=== PATIENT | male | born 1995 | race Caucasian/White ===

== ENCOUNTER 2021-06-26 11:53 | Emergency (ER) | payer OTHER, SELFPAY ==
[2021-06-26] VITALS (10 sets, daily range): BP systolic 116–141; BP diastolic 74–85; PULSE 55–92; RESP 16–20; TEMP 36.2–37.2; O2SAT 96–100; BMI 24.0
--- NOTE | ~2021-06-26 | FL_ITS ---
EXAMINATION: XR FLUOROSCOPY WITH IMAGES CLINICAL INFORMATION: Urinary tract calculi with left hydronephrosis. COMPARISON: CT abdomen and pelvis noncontrast 06/26/2021. TECHNIQUE: Fluoroscopy performed by Dr. Shahram Mcrae. Fluoroscopy time: 1.9 minutes Total dose: 24 mGy Images: 5 FINDINGS: There is some contrast in the mid left ureter. Final images show left ureteral stent in position. FL/FL guidance in OR IMPRESSION: Fluoroscopy for urologic procedure.
--- NOTE | ~2021-06-26 | CT_ITS ---
EXAMINATION: CT ABDOMEN AND PELVIS WITHOUT CONTRAST CLINICAL INFORMATION: Left flank pain, vomiting COMPARISON: None TECHNIQUE: Multidetector volumetric imaging was performed from the superior aspect of the liver through the pubic symphysis. No oral or intravenous contrast. Sagittal and coronal reformatted images were obtained on the technologist's workstation. This CT examination was performed using dose optimization techniques as appropriate, variously including the following: *Automated exposure control *Adjustment of mA and/or kV according to patient size (this includes techniques or standardized protocols for targeted exams where dose is matched to indication/reason for exam; i.e. extremities or head) *Use of iterative reconstruction technique DLP: 376 mGy-cm FINDINGS: LUNG BASES: The visualized lung bases are unremarkable. LIVER, GALLBLADDER, AND BILIARY TREE: The liver is normal in size, shape, and attenuation. No focal hepatic lesion or biliary ductal dilatation is present. The gallbladder is unremarkable with no evidence of radiopaque gallstones, gallbladder wall thickening, or obvious pericholecystic inflammatory changes. PANCREAS: Unremarkable. SPLEEN: Unremarkable. ADRENAL GLANDS: Unremarkable. KIDNEYS AND URETERS: Left hydronephrosis of moderate to prominent severity is present without perinephric stranding. The left kidney shows normal parenchymal thickness. No mass. There is mild left renal parenchymal edema with parenchymal attenuation 28 HU compared with the contralateral right kidney attenuation of 38HU. Nonobstructing left lower pole calculus measures 6 x 9 mm, 403 HU attenuation, and 7 cm from flank. There are a few punctate nonobstructing calculi lower pole under 3 mm. The proximal left ureter has 2 adjacent calculi at level L3-L4, each under 4 mm. Larger left ureteral calculus versus grouping calculi at level of L4 measures 5 x 8 mm, 820 HU attenuation, and 10 cm from flank. No other left ureteral calculi. Right kidney is normal in size and parenchymal thickness. No mass. No hydronephrosis or hydroureter or perinephric stranding. There are 3 small nonobstructing right renal calculi under 4 mm. No right ureteral calculi. BLADDER: Unremarkable. GASTROINTESTINAL TRACT: No bowel obstruction or focal inflammatory changes. There is increased attenuation in the appendiceal lumen along with a focal appendicolith approximately 3 x 5 mm in size. No appendiceal wall thickening or periappendiceal inflammatory changes. No ascites or fluid collection. There is moderate stool in the rectosigmoid. ABDOMINAL WALL: No significant hernia is appreciated. LYMPH NODES: No lymphadenopathy. VASCULAR: Probable retroaortic left renal vein. PELVIC VISCERA: Unremarkable. OSSEOUS STRUCTURES: Unremarkable. CT/CT abdomen pelvis wo con IMPRESSION: 1. Prominent left hydronephrosis secondary to several left ureteral calculi. Nonobstructing calculi lower pole left kidney. No perinephric stranding. 2. Nonobstructing calculi right kidney. 3. Calcified appendicoliths and some increased attenuation and otherwise unremarkable appendiceal lumen. No appendiceal wall thickening or periappendiceal inflammatory changes. No obstruction, ascites, or fluid collection.
[2021-06-26] MEDS: 0.9 % Sodium Chloride 1,000 ML 999 ML IVCONT ×2 (12:53→15:06)
[2021-06-26 12:56] LABS: MANUAL DIFF FLAG NO
[2021-06-26 12:58] LABS: Hematocrit 42.9 % (42.0-52.0); Imm Gran Abs Auto 0.01 X10*3/uL (0.00-0.03); Imm Gran Pct Auto 0.2 % (0.0-0.4); Lymphocytes Absolute Auto 0.8 X10*3/uL (1.2-4.9); Lymphocytes Percent Auto 13.3 % (20-40); Mean Corpuscular Hemoglobin 30.9 pg (27.0-33.0); Mean Corpuscular Volume 88.3 fL (80.0-98.0); Mean Platelet Volume 10.1 fL (9.4-12.4); Monocytes Absolute Auto 0.3 X10*3/uL (0.1-1.2); Monocytes Percent Auto 4.8 % (2-11); Neutrophils Absolute Auto 4.7 x10*3/uL (2.0-8.3); Neutrophils Percent Auto 81.7 % (45-73); Platelet Count 208 X10*3/uL (160-400); Red Blood Count 4.86 X10*6/uL (4.60-5.80); Red Cell Distribution Width 12.1 % (11.0-16.0); White Blood Count 5.8 X10*3/uL (4.8-10.8)
--- NOTE | 2021-06-26 12:59 | ED_ITS ---
HPI - Abdominal Pain General Chief Complaint: Urogenital-Female Stated Complaint: recurring kidney pain vomiting Time Seen by Provider: 06/26/21 12:39 Source: patient Mode of arrival: ambulatory Limitations: no limitations History of Present Illness HPI narrative: 25-year-old male with a history of known kidney stones presents to the ER with left-sided flank pain and vomiting that started this morning. Symptoms are worsening. He reports the pain is similar to his previous kidney stone episodes. He reports 3 times he has required urologic intervention for his stones; he does not recall the name of his Urologist but used to go to [facility]. He denies any fever or chills, no abdominal pain and no blood in his urine. He reports the pain is severe located in his left middle back. It is worse with any movement. He vomited several times today. He is not vaccinated for COVID- 19. MD elicited complaint: flank pain Pertinent past history: kidney stones Onset (ago): hour(s) Pain Consistency: constant Location: L flank Severity: similar to previous episodes Quality: sharp Radiation: none Migration to: no migration Exacerbating factors: movement Relieving factors: other (Remaining still) Context: history of similar episodes Associated symptoms: nausea and vomiting Related Data Allergies Allergy/AdvReac Type Severity Reaction Status Date / Time Unable to Assess Allergy Unverified 06/26/21 12:39 Review of Systems Review of Systems Constitutional: No Fever, No Chills ENT/Mouth: No sore throat, No Rhinorrhea, No Swallowing Difficulty Cardiovascular: No Chest Pain, No SOB, No Orthopnea, No Edema Respiratory: No Cough, No Sputum, No Wheezing, No dyspnea Gastrointestinal: + Nausea, + Vomiting, No Diarrhea, No abdominal Pain, No Hematochezia, No Melena, +flank pain Genitourinary: No Dysuria, No Urinary Frequency, No Hematuria Musculoskeletal: No joint pain, No Myalgias Skin: No Skin Lesions, No rash Neuro: No Weakness, No Numbness, No Dizziness, No Headache Heme/Lymph: No Bruising, No Lymphadenopathy Endocrine: No Polyuria, No Polydipsia Physical Exam Vital Signs: Vital Signs: Last Vital Signs Temp 98 F 06/26/21 12:43 Pulse 55 06/26/21 12:43 Resp 19 06/26/21 12:43 BP 141/85 H 06/26/21 12:43 Pulse Ox 99 06/26/21 12:43 BMI result Body Mass Index 24.0 Appearance: Alert. Oriented X3. Appears pale and uncomfortable. Eyes: Pupils equal, round and reactive to light. ENT: Pharynx normal. Neck: Normal inspection. Neck supple. CVS: Normal heart rate and rhythm. Pulses normal. Respiratory: No respiratory distress. Breath sounds normal. Abdomen: Soft and nontender. +BS x4. Positive CVA tenderness on the left. Skin: Skin warm and dry. Normal skin color. Normal skin turgor. No rashes. Extremities: No lower extremity edema. Neuro: Oriented X 3. No motor deficit. No sensory deficit. Course Course Course Narrative: 25-year-old male with history kidney stones presents to the ER with acute onset of left-sided flank pain, nausea, vomiting that started this morning. He was at work and had to leave because the symptoms got so severe. Concern for recurrent kidney stone. Will get labs, UA and CT scan for further evaluation. Will get COVID swab given vomiting. Reevaluation(s) Reevaluation #1: Patient's COVID swab is positive. He denies any fever, cough, chills, shortness of breath or chest pain. IV Toradol, Zofran and IV fluids are ordered. Will reassess. CT scan is pending. Reevaluation #2: CT scan is showing prominent left hydronephrosis with several left ureteral calculi. The proximal left ureter has 2 adjacent calculi at the level of L3-L4 each under 4 mm. There is a larger left uretreal calculus vs grouping calculi at the level of L4 5x8 mm. Will c/s Dr. mcrae. Pain still 8/10 after toradol, IV morphine ordered. Reevaluation #3: Pain is improved to 6/10. Spoke with Dr. Mcrae via tiger text to would like to take the patient to the OR today for intervention. He is aware of COVID positive status. Anticipate patient will be discharged after the proce dure. His COVID symptoms are minimal. Stable for discharge from the ED to the OR for acute urologic intervention. Consultations Consultation #1: Urology - Dr. Mcrae MDM - Abdominal Pain Lab Data Result diagrams: 06/26/21 12:51 06/26/21 12:51 Labs: Lab Results 06/26/21 06/26/21 06/26/21 Range/Units 12:51 12:51 12:57 WBC 5.8 (4.8-10.8) X10*3/uL RBC 4.86 (4.60-5.80) X10*6/uL Hgb 15.0 (14.0-18.0) g/dl Hct 42.9 (42.0-52.0) % MCV 88.3 (80.0-98.0) fL MCH 30.9 (27.0-33.0) pg MCHC 35.0 (31.0-36.0) g/dl RDW 12.1 (11.0-16.0) % Plt Count 208 (160-400) X10*3/uL MPV 10.1 (9.4-12.4) fL Immature Gran % (Auto) 0.2 (0.0-0.4) % Neut % (Auto) 81.7 H (45-73) % Lymph % (Auto) 13.3 L (20-40) % [place] % (Auto) 4.8 (2-11) % Eos % (Auto) 0.0 (0-4) % Baso % (Auto) 0.0 (0-2) % Lymph # (Auto) 0.8 L (1.2-4.9) X10*3/uL [place] # (Auto) 0.3 (0.1-1.2) X10*3/uL Eos # (Auto) 0.0 (0.0-0.4) X10*3/uL Baso # (Auto) 0.0 (0.0-0.2) X10*3/uL Abs Immat Gran (auto) 0.01 (0.00-0.03) X10*3/uL Absolute Neuts (auto) 4.7 (2.0-8.3) x10*3/uL Absolute Nucleated RBC 0.000 (0.0-0.012) X10*3/uL Nucleated RBC % (auto) 0.0 (0.0-0.2) /100WBC Sodium 139 (135-145) mmol/L Potassium 4.0 (3.3-5.1) mmol/L Chloride 102 (96-108) mmol/L Carbon Dioxide 27 (22-29) mmol/L Anion Gap 14 (12-20) BUN 10 (9-16) mg/dL Creatinine 0.90 (0.5-1.4) mg/dL Estim Creat Clear Calc 135.9 Estimated GFR > 60 Random Glucose 129 H (60-115) mg/dL Calcium 9.4 (8.4-10.2) mg/dL Magnesium 2.1 (1.6-2.6) mg/dL Total Bilirubin 1.3 H (0.0-1.0) mg/dL Direct Bilirubin 0.6 H (0.0-0.5) mg/dL AST 16 (5-37) U/L ALT 16 (0-40) U/L Alkaline Phosphatase 64 (39-117) U/L Total Protein 7.9 (6.5-8.0) g/dL Albumin 4.7 (3.5-5.0) g/dL COVID-19 (NARENDRA) Positive A (Negative) COVID-19 Clin Com See Note Critical Care Time Critical Care Time Critical Care Time: Yes Total Critical Care Time: 36 Attestation: I have personally provided critical care time exclusive of time spent on separately billable procedures. Time includes review of lab data, radiology results, discussion with consultants, and monitoring for potential decompensation. Intervention performed as documented. Discharge Plan Discharge Clinical Impression: COVID-19, Left ureteral calculus Hydronephrosis Qualifiers: Hydronephrosis type: with ureteral calculous obstruction Qualified Code(s): N13.2 - Hydronephrosis with renal and ureteral calculous obstruction Patient Disposition: Still a Patient Instructions: Covid-19 Viral Syndrome and Novel Coronavirus (ED) Hey/Ath, Ureteral Stones (ED) [facility] Past Medical History Medical History (Updated 06/26/21 @ 15:52 by LINA Colon) Kidney stones Social History Social History Advance Directives: No Advance Directives Information Provided: Yes
[2021-06-26 13:10] LABS: COVID-19 Test Positive (Negative)
[2021-06-26 13:13] LABS: Alanine Aminotransferase 16 U/L (0-40); Albumin Level 4.7 g/dL (3.5-5.0); Alkaline Phosphatase 64 U/L (39-117); Anion Gap 14 (12-20); Aspartate Amino Transferase 16 U/L (5-37); Bilirubin Direct 0.6 mg/dL (0.0-0.5); Bilirubin Total 1.3 mg/dL (0.0-1.0); Blood Urea Nitrogen 10 mg/dL (9-16); Calcium 9.4 mg/dL (8.4-10.2); Carbon Dioxide 27 mmol/L (22-29); Chloride 102 mmol/L (96-108); Creatinine Clr Calc Pharmacy 135.9; Estimated Glomerular Filt Rate > 60; Glucose Random 129 mg/dL (60-115); Magnesium 2.1 mg/dL (1.6-2.6); Sodium 139 mmol/L (135-145); Total Protein 7.9 g/dL (6.5-8.0)
[2021-06-26] MEDS: Ketorolac Tromethamine 30 MG/ML VIAL IVPUSH (13:24)
[2021-06-26] MEDS: ondansetron HCL 4 MG/2 ML VIAL IVPUSH (13:24)
[2021-06-26] MEDS: Tamsulosin HCL 0.4 MG CAPSULE PO (15:05)
[2021-06-26] MEDS: dexAMETHasone sod phosphate 4 MG/ML VIAL 8 MG IVPUSH (15:05)
[2021-06-26] MEDS: Morphine Sulfate 4 MG/ML CARTRIDGE IVPUSH ×2 (15:06→17:25)
--- NOTE | 2021-06-26 16:08 | PM.UROCN ---
History of Present Illness Consult details Consult date: 06/26/21 Narrative: Davy is a 25-year-old male Recurrent stone former Recently underwent procedures done at [facility] Presents with nausea and left-sided flank pain CT scan shows Steinstrasse in with collection of stones in mid ureter and collection of lower pole left side Based on CT findings unlikely to be able to pass stone Laboratory showed creatinine 0.9, calcium 9.4, WBC 5.8 Recommend ureteroscopy with laser lithotripsy and stent placement left side Patient has swabbed positive for COVID. Had runny nose for past 2 days with negative COVID tests. Review of Systems Constitutional: Constitutional: Reports as per HPI and Reports no additional constitutional complaints Cardiovascular: Cardiovascular: Reports as per HPI and Reports no additional cardiovascular complaints Respiratory: Respiratory: Reports as per HPI and Reports no additional respiratory complaints Gastrointestinal: Gastrointestinal: Reports as per HPI and Reports no additional gastrointestinal complaints Genitourinary: Genitourinary: Reports as per HPI Musculoskeletal: Musculoskeletal: Reports no additional musculoskeletal complaints and Reports as per HPI Neurologic: Reports system reviewed and no additional complaints, except as documented and Reports as per HPI [facility] Past Medical History Medical History (Updated 06/26/21 @ 16:11 by Shahram Mcrae MD) Kidney stones Social History Social History Advance Directives: No Advance Directives Information Provided: Yes Meds Allergies Allergy/AdvReac Type Severity Reaction Status Date / Time Unable to Assess Allergy Unverified 06/26/21 12:39 Active Medications: Current Medications Pharmacy Consult (Consult Rx Perform Med Rec) 1 each MISCELLANE ONCE PRN PRN Reason: Consult order Physical Exam Vital Signs: Vital Signs: Last Vital Signs Temp 98 F 06/26/21 12:43 Pulse 55 06/26/21 12:43 Resp 19 06/26/21 12:43 BP 141/85 H 06/26/21 12:43 Pulse Ox 99 06/26/21 12:43 BMI result Body Mass Index 24.0 Const: General: cooperative, healthy appearing, comfortable and no acute distress Orientation/consciousness: patient oriented x3 HENMT: Face and sinus: Yes normal facial exam Mouth: moist mucous membranes Neck: Neck: Yes normal visual inspection, Yes full ROM and Yes trachea midline Chest: Chest palpation & inspection: normal inspection of the chest Resp: Effort & Inspection: normal respiratory effort, able to speak in complete sentences and no respiratory distress GI: Inspection: Yes normal to inspection Back/Spine/Pelvis: Cervical Spine: normal cervical lordosis Thoracic/Lumbar Spine: thoracic and lumbar spine normal to inspection Skin: General skin exam: no rashes or lesions noted Neuro: General: patient oriented x3, tone normal and moves all extremities Extrem: General: Yes normal to inspection and Yes capillary refill normal Results Labs Result diagrams: 06/26/21 12:51 06/26/21 12:51 Labs: Abnormal lab results 06/26/21 06/26/21 06/26/21 Range/Units 12:51 12:51 12:57 Neut % (Auto) 81.7 H (45-73) % Lymph % (Auto) 13.3 L (20-40) % Lymph # (Auto) 0.8 L (1.2-4.9) X10*3/uL Random Glucose 129 H (60-115) mg/dL Total Bilirubin 1.3 H (0.0-1.0) mg/dL Direct Bilirubin 0.6 H (0.0-0.5) mg/dL COVID-19 (NARENDRA) Positive A (Negative) Short CBC 06/26/21 Range/Units 12:51 WBC 5.8 (4.8-10.8) X10*3/uL Hgb 15.0 (14.0-18.0) g/dl Hct 42.9 (42.0-52.0) % Plt Count 208 (160-400) X10*3/uL BMP 06/26/21 12:51 Sodium 139 Potassium 4.0 Chloride 102 Carbon Dioxide 27 BUN 10 Creatinine 0.90 Calcium 9.4 Liver Function 06/26/21 Range/Units 12:51 Total Bilirubin 1.3 H (0.0-1.0) mg/dL Direct Bilirubin 0.6 H (0.0-0.5) mg/dL AST 16 (5-37) U/L ALT 16 (0-40) U/L Alkaline Phosphatase 64 (39-117) U/L Albumin 4.7 (3.5-5.0) g/dL All other labs normal. Assessment and Plan (1) Left ureteral calculus: Status: Acute (2) Hydronephrosis: Qualifiers: Hydronephrosis type: with ureteral calculous obstruction Qualified Code(s): N13.2 - Hydronephrosis with renal and ureteral calculous obstruction Status: Acute (3) Flank pain: Status: Acute Ureteroscopy We discussed the nature of the decision and reasonable alternatives for performing the above surgery. Interventions include chemical dissolution, ESWL, ureteroscopy with laser lithotripsy and stent placement, PCNL. Options such as medical therapy were discussed. The relative uncertainties and benefits related to each alternate procedure were adequately discussed. General surgical risks including, but not limited to, pain, bleeding, infection, myocardial infarction, pulmonary embolus, deep vein thrombosis and cerebrovascular accident which may result in further hospitalization were discussed. Full disclosure of the procedure as well as all major risks, benefits and complications were discussed including but not limited to damage to the urethra, bladder and kidney infection, damage to the ureter, stent migration or malposition, scarring to the renal pelvis, remnant stone fragments, subsequent stone passage with need for secondary procedures. The overall secondary procedure rate is approximately 10-15%. The success rate of the procedure was discussed. Success of the procedure in the short-term does not necessarily guarantee that long-term success will be maintained. Suitable follow up will need to be maintained. The patient showed understanding of discussion and wishes to proceed with - cystoscopy, retrograde, ureteroscopy, possible lithotripsy/stone basketing and stent on the left side Procedures Date of Service Date of Service: 06/26/21
--- NOTE | 2021-06-26 16:47 | PHA.MEDREC ---
MED REC COMPLETE. PATIENT NOT ON ANY HOME MEDICATIONS Pharmacy Consult ? Medication Reconciliation Pharmacy has completed the medication reconciliation.
[2021-06-26] MEDS: levoFLOXacin/D5W 500 MG/100 ML PIGGYBACK 100 MG IV (16:57)
[2021-06-26 17:15] LABS: Appearance Urine HAZY; Color Urine YELLOW; Glucose Urine UA NEG (NEG); Leukocyte Esterase Urine NEG (NEG); Nitrite Urine NEG (NEG); UACC Culture Trigger NO; Urine Blood 3+ (NEG); Urine Ketones 15 MG/DL (NEG); Urine Protein TRACE MG/DL (NEG-TRACE)
[2021-06-26 17:25] LABS: RBC Urine 30-49 /HPF (0); Squamous Epithelial Cell Urine TRACE /LPF; Triple Phosphate Crystal Urine 3+ /LPF; WBC Urine 0-2 /HPF (0-4)
[2021-06-26 17:26] LABS: Bacteria Urine 1+ /LPF; Mucus Urine TRACE /LPF
--- NOTE | 2021-06-26 19:37 | P.CONAN_ITS ---
[facility] Active Problems Active Problems: All Active Problems (Updated 06/26/21 @ 16:11 by Shahram mitchell MD) Flank pain (Acute) COVID-19 (Acute) Left ureteral calculus (Acute) Hydronephrosis (Acute) Past Medical History Medical History (Updated 06/26/21 @ 16:11 by Shahram Mcrae MD) Kidney stones Family History Family history of problems with anesthesia: No Surgical History History of Problems with Anesthesia: No Social History Social History Patient Tobacco Use Status: Never used Tobacco Use of substances other than those prescribed or required for medical reasons: No Advance Directives: No Advance Directives Information Provided: Yes Meds Allergies Allergy/AdvReac Type Severity Reaction Status Date / Time Unable to Assess Allergy Unverified 06/26/21 12:39 Active Medications: Current Medications Pharmacy Consult (Consult Rx Perform Med Rec) 1 each MISCELLANE ONCE PRN PRN Reason: Consult order Home Medications Medication Instructions Recorded Confirmed Last Taken Type No Known Home Meds 06/26/21 06/26/21 Unknown History Exam Exam Date and Time: June 26, 20211936 Height,Weight and Vital Signs: Height 5 ft 11 in Weight 78.018 kg Last Vital Signs Temp 98.1 F 06/26/21 19:08 Pulse 60 06/26/21 19:08 Resp 16 06/26/21 19:08 BP 125/81 06/26/21 19:08 Pulse Ox 99 06/26/21 19:08 Pertinent Lab Results Pertinent Lab Results: Laboratory Tests 06/26/21 06/26/21 06/26/21 12:51 12:51 12:57 WBC 5.8 RBC 4.86 Hgb 15.0 Hct 42.9 MCV 88.3 MCH 30.9 MCHC 35.0 RDW 12.1 Plt Count 208 MPV 10.1 Immature Gran % (Auto) 0.2 Neut % (Auto) 81.7 H Lymph % (Auto) 13.3 L [place] % (Auto) 4.8 Eos % (Auto) 0.0 Baso % (Auto) 0.0 Lymph # (Auto) 0.8 L [place] # (Auto) 0.3 Eos # (Auto) 0.0 Baso # (Auto) 0.0 Abs Immat Gran (auto) 0.01 Absolute Neuts (auto) 4.7 Absolute Nucleated RBC 0.000 Nucleated RBC % (auto) 0.0 Sodium 139 Potassium 4.0 Chloride 102 Carbon Dioxide 27 Anion Gap 14 BUN 10 Creatinine 0.90 Estim Creat Clear Calc 135.9 Estimated GFR > 60 Random Glucose 129 H Calcium 9.4 Magnesium 2.1 Total Bilirubin 1.3 H Direct Bilirubin 0.6 H AST 16 ALT 16 Alkaline Phosphatase 64 Total Protein 7.9 Albumin 4.7 Urine Color Urine Appearance Urine pH Ur Specific [place] Urine Protein Urine Glucose (UA) Urine Ketones Urine Blood Urine Nitrite Ur Leukocyte Esterase Urine RBC Urine WBC Ur Squamous Epith Cells Triple Phos Crystals Urine Bacteria Urine Mucus COVID-19 (NARENDRA) Positive A COVID-19 Clin Com See Note 06/26/21 17:06 WBC RBC Hgb Hct MCV MCH MCHC RDW Plt Count MPV Immature Gran % (Auto) Neut % (Auto) Lymph % (Auto) [place] % (Auto) Eos % (Auto) Baso % (Auto) Lymph # (Auto) [place] # (Auto) Eos # (Auto) Baso # (Auto) Abs Immat Gran (auto) Absolute Neuts (auto) Absolute Nucleated RBC Nucleated RBC % (auto) Sodium Potassium Chloride Carbon Dioxide Anion Gap BUN Creatinine Estim Creat Clear Calc Estimated GFR Random Glucose Calcium Magnesium Total Bilirubin Direct Bilirubin AST ALT Alkaline Phosphatase Total Protein Albumin Urine Color YELLOW Urine Appearance HAZY Urine pH 7.0 Ur Specific [place] 1.020 Urine Protein TRACE Urine Glucose (UA) NEG Urine Ketones 15 Urine Blood 3+ H Urine Nitrite NEG Ur Leukocyte Esterase NEG Urine RBC 30-49 H Urine WBC 0-2 Ur Squamous Epith Cells TRACE Triple Phos Crystals 3+ Urine Bacteria 1+ Urine Mucus TRACE COVID-19 (NARENDRA) COVID-19 Clin Com Airway Mallampati Class: II TM Dist: >3cm Neck ROM: Full Heart: RRR Lungs: CTA Assessment and Plan Assessment Anesthesia Assessment: Anesthesia Plan Discussed and Chart Reviewed Final Anesthetic Review Family History of Problems with Anesthesia: No History of Problems with Anesthesia: No NPO: Yes ASA Class: II Final Preanesthetic Review: No Changes in Pt Med Stat, Meds/Allgs Chart Reviewed, Consent Obtained/Reviewed and Anes Risks/Benef Reviewed Patient Risk: Low Procedure Risk: Low Anesthetic Plan Anesthetic Plan: GA Disposition: Standard PACU
--- NOTE | 2021-06-26 20:42 | PC.NURSE ---
pt off to OR
--- NOTE | 2021-06-26 21:34 | MHC.SHP ---
Pre-Procedural Eval Section A Date of Service: 06/26/21 The patient is an INPATIENT: No Changes since office visit: No Cold of Flu in the past 2 weeks, No New Medical Problems, No Changes in Medication and No Patient answered all questions The History & Physical has been completed within 30 days and I have reviewed it.: Yes Section B Chief Complaint: recurring kidney pain vomiting Allergies: Allergies Allergy/AdvReac Type Severity Reaction Status Date / Time No Known Allergies Allergy Verified 06/26/21 20:28 Plan Diagnosis/Plan: Unchanged (Cystoscopy, left retrograde, left ureteroscopy laser lithotripsy stent placement) I have reviewed the history and physical and performed a pertinent physical examination on my patient. No changes have occurred unless specified.
--- NOTE | 2021-06-26 21:41 | W.PM.OPN ---
Operative Note Operative Note Date of Service: 06/26/21 Narrative: PreOperative Diagnosis: Left mid ureteric stones and left renal stones multiple Post Operative Diagnosis: Same Procedure: - cystoscopy, left retrograde - left semi rigid ureteroscopy with laser lithotripsy - dilatation left ureteric orifice - left flexible renal ureteroscopy, laser lithotripsy, stone basketing - left stent placement Surgeon: Dr Shahram Mcrae Anesthesia: General Indications for procedure: This is a 25-year-old male. Presents with persistent pain on left side. On imaging found to have Steinstrasse in with a cluster of stones mid left ureter and proximal hydroureteronephrosis. Also numerous small stones in left lower pole of kidney. Recommend ureteroscopy given stone locations. Procedure: After informed consent was verified patient was brought to the operating placed in supine position. Anesthesia was administered per protocol. Patient was placed in modified dorsal lithotomy position and prepped and draped in a sterile fashion. Safety pause time-out and side of surgery confirmed. Antibiotics confirmed. 22 Cambodian cystoscope was inserted per urethra. Bladder was normal in its entirety. Both ureteric orifices were in normal position. The left ureteric orifice was cannulated and a retrograde examination was performed. Filling defect was seen mid to proximal ureter. A Sensor guidewire was placed up to the level of the renal pelvis under fluoroscopy. A semi rigid ureteral scope was placed alongside the wire. Multiple stones were encountered at the mid proximal ureter. Using a laser fiber these were broken into small pieces. Decision was made not to proceed with stone basketing but to instead proceed with flexible ureteroscopy by sheath. The semi rigid ureteral scope was removed and the inner cannula of ureteric access sheath was used under fluoroscopy to dilate the ureteric orifice. The ureteric access sheath was placed and the inner cannula with access wire removed. The digital flexible ureteral scope was placed. The stones that had been within the ureteral pushed back up into the kidney. Using a 1.9 [place] 0 tip basket multiple passes were made and stone fragments were removed. The kidney was then explored. Of note there looked to be chronic effacement of the calices with dilated renal pelvis. The left lower pole had a cluster of stones. Multiple passes were made and stones collected until the remnant stones with small and did not stay within the basket. Bladder was emptied. The ureteric access sheath was removed. The Sensor guidewire was backloaded into a rigid cystoscope. A 6 Camb[place]ian by 26 cm cm double-J stent was placed into the renal pelvis and bladder under a combination of fluoroscopy and direct visualization. The bladder was emptied. The patient tolerated the procedure well and was extubated in the operating room, and transferred in stable condition to the recovery area. Pathology: Stones Drains: 6 [place]ian by 26 cm stent
[2021-06-26] MEDS: Metoclopramide HCl 10 MG/2 ML VIAL 5 MG IM (22:45)
[2021-06-26] MEDS: diphenhydrAMINE HCL 50 MG/ML VIAL 12.5 MG IM (22:46)
--- NOTE | 2021-06-26 22:50 | PC.NURSE ---
[id number] PATIENT TRANSFER TO ED VIA STRETCHER ON PATIENT MONITOR. BEDSIDE REPORT GIVEN TO ED RN WALI BLACK
[2021-06-26] MEDS: Phenazopyridine HCL 100 MG TABLET PO (23:24)
--- NOTE | 2021-06-27 13:13 | HO.POSTANES ---
Post Anesthesia Evaluation Post Anesthesia Evaluation Anesthesia: General LMA Mental Status: Awake Pain Control: Satisfactory Nausea/Vomiting: None Hydration: Adequate Anesthesia-Related Issues: No Anes. Related Issues
[2021-07-04 02:12] LABS: Stone Source LEFT URETERAL STONE
== END 2021-06-27 00:39 | disposition home or self-care (01) ==
PROVIDERS: Physician Assistant; Urology; Emergency Provider Emergency Medicine
PROC: (CPT 52356; principal; 2021-06-26 20:00)
DX: U07.1 COVID-19 (principal); N13.2 Hydronephrosis with renal and ureteral calculous obstruction; R10.9 Unspecified abdominal pain; Z87.442 Personal history of urinary calculi; R11.2 Nausea with vomiting, unspecified
CPT/HCPCS: 52356; 52352; 36415; 74176; 80048; 80076; 81001; 82365; 83735; 85025; 87635; 88300; 96361; 96372; 96374; 96375; 96376; 99285; C1758; C1769; C1894; C2617; J1100; J1200; J1885; J1956; J2270; J2405; J2765; J3010; Q9967

== ENCOUNTER → 2021-07-11 12:40 | Outpatient (BNVA) | payer OTHER, SELFPAY | PROVIDERS: Visit Provider Urology | DX: N20.0 Calculus of kidney (principal) | CPT/HCPCS: 52310 ==

== ENCOUNTER 2021-08-18 13:13 | Outpatient (REF) | payer OTHER, SELFPAY ==
--- NOTE | ~2021-08-18 | US_ITS ---
EXAMINATION: US RETROPERITONEAL LIMITED (RENAL ONLY) CLINICAL INFORMATION: Calculus of kidney. COMPARISON: CT abdomen pelvis 06/26/2021. TECHNIQUE: Real-time imaging of the kidneys. FINDINGS: RIGHT KIDNEY: 12.0 x 5.1 x 6.6 cm (SAG x AP x TRV). The kidney is normal in size, contour, and echogenicity. Renal cortical thickness is normal. There are multiple bilateral renal stones. The largest measures 3 x 5 mm in the lower pole. No focal parenchymal lesions or hydronephrosis. LEFT KIDNEY: 12.0 x 5.1 x 6.0 cm (SAG x AP x TRV). The kidney is normal in size, contour, and echogenicity. Renal cortical thickness is normal. There are multiple renal stones. Largest stone or cluster of stones measures 4 x 10 mm in the lower pole. There is mild left hydronephrosis. No focal parenchymal lesions. US/US renal BI IMPRESSION: Bilateral renal stones, left greater than right. Mild left hydronephrosis.
== END 2021-08-18 13:14 | disposition home or self-care (01) ==
LOC: HO.US 13:13
PROVIDERS: Visit Provider Urology
DX: N20.0 Calculus of kidney (principal)
CPT/HCPCS: 76775

== ENCOUNTER → 2021-09-10 08:17 | Outpatient (BNVA) | payer OTHER, SELFPAY | PROVIDERS: Visit Provider Urology ==

== ENCOUNTER 2022-03-23 14:16 | Outpatient (REF) | payer OTHER, SELFPAY ==
--- NOTE | ~2022-03-23 | US_ITS ---
EXAMINATION: US RETROPERITONEAL LIMITED (RENAL ONLY) CLINICAL INFORMATION: Calculus of kidney. COMPARISON: Renal ultrasound 08/18/2021, CT abdomen and pelvis 06/26/2021 TECHNIQUE: Real-time imaging of the kidneys. FINDINGS: RIGHT KIDNEY: 12.9 x 6.0 x 5.0 cm (SAG x AP x TRV). Multiple renal calculi, largest 0.3 cm lower pole, 0.3 cm midpole and 0.7 cm midpole. No hydronephrosis. LEFT KIDNEY: 12.6 x 5.0 x 4.3 cm (SAG x AP x TRV). Calculi versus clusters of tiny calculi in the left lower pole measure 0.8 x 0.8 x 0.8 cm and 0.7 x 0.6 x 0.8 cm. Additional smaller calculi are identified. No hydronephrosis. US/US renal BI IMPRESSION: Bilateral nonobstructive renal calculi. No hydronephrosis.
== END 2022-03-23 14:17 | disposition home or self-care (01) ==
LOC: HO.US 14:16
PROVIDERS: Visit Provider Urology
DX: N20.0 Calculus of kidney (principal)
CPT/HCPCS: 76775